=== PATIENT | male | born 1990 | race Asian ===

== ENCOUNTER 2016-05-29 13:04 | Emergency (ER) | payer SELFPAY ==
[~2016-05-29] VITALS: Ht 182.9 cm; Wt 113.0 kg
[2016-05-29 13:08] VITALS: TEMP 37.2; Ht 182.9 cm; Wt 113.0 kg
--- NOTE | 2016-05-29 14:09 | EMERGENCY ROOM VISIT NOTE ---
History Report prepared by Debra: Elmo Rodrgiuez Under the Supervision of: Dr. Tim Sandoval D.O. First contact with patient: 13:40 Chief Complaint: MENTAL HEALTH EVALUATION Stated Complaint: THOUGHTS OF HARMING SELF History of Present Illness The patient is a 25 year old male who presents to the Emergency Room for an acute mental health evaluation. The patient is a [employer] student. He has been under a lot of stress for the past several months. 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 The patient was intoxicated last night when he made suicidal statements to his friends. The patient's friend contacted 911 and he came to the ED. The patient denies any specific plans for suicide. He is not currently suicidal, and just wants to get through this semester. He denies past suicidal ideations other than last night. The patient has access to a handgun. He has never seen a psychiatrist or therapist. He denies any significant medical or surgical history. He does not take any regular medications. He is a former smoker and does not use drugs other than alcohol. Last night was his first time drinking in five weeks. He denies any fevers, chills, chest pain, shortness of breath, nausea, vomiting, diarrhea, or other complaints. Source of History: patient Onset: last night Position: other (psyche) Quality: other (suicidal ideations) Timing: resolved Associated Symptoms: No SOB, No chest pain, No chills, No diarrhea, No fevers, No nausea, No vomiting Review of Systems See HPI for pertinent positives & negatives. A total of 10 systems reviewed and were otherwise negative. Past Medical & Surgical Medical Problems: (1) No known health problems Family History No pertinent family history Social History Smoking Status: Former Smoker Alcohol Use: occasionally Occupation Status: [employer] student Current/Historical Medications No Active Prescriptions or Reported Meds Allergies Coded Allergies: No Known Allergies (Unverified , 05/29/16) Physical Exam Vital Signs Date Time Temp Pulse Resp B/P Pulse Ox O2 Delivery O2 Flow Rate FiO2 05/29/16 14:59 89 16 132/78 98 05/29/16 13:08 37.2 99 17 141/86 97 Room Air Physical Exam GENERAL: Patient is awake, alert, and in no acute distress. Patient is resting comfortably and showing no signs of anxiety EYES: The conjunctivae are clear. The pupils are round and reactive. EARS, NOSE, MOUTH AND THROAT: The nose is without any evidence of any deformity. Mucous membranes are moist tongue is midline NECK: The neck is nontender and supple. RESPIRATORY: Normal respiratory effort is noted there is no evidence of wheezing rhonchi or rales CARDIOVASCULAR: Regular rate and rhythm noted there no murmurs rubs or gallops normal S1 normal S2 GASTROINTESTINAL: The abdomen is soft. Bowel sounds are present in all quadrants. Abdomen is nontender MUSCULOSKELETAL/EXTREMITIES: There is no evidence of gross deformity full range of motion is noted in the hips and shoulders SKIN: There is no obvious evidence of any rash. There are no petechiae, pallor or cyanosis noted. NEUROLOGIC: Patient is awake alert and oriented x3 strength is symmetric patellar reflexes are 2+ bilaterally PSYCHIATRIC: Affect is normal, makes good eye contact, currently denying any suicidal or homicidal ideations. Medical Decision & Procedures ED Course 1400: The patient was evaluated in room A8. A complete history and physical examination were performed. 1435: The patient was evaluated by the mental health rn case management. The patient is cleared to be discharged. Medical Decision Prior records/ancillary studies reviewed. Triage Nursing notes reviewed. The patient's history was concerning for possible psychiatric disturbance. Differential diagnosis: Etiologies such as mood disorder, infection, hypoglycemia, electrolyte abnormalities, cardiac sources, intracerebral event, toxicologic, neurologic, as well as others were entertained. The patient is a 25-year-old male who presented to the emergency department with a friend for mental health evaluation. 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 He is unsure if she wants to continue on this path. His grades according to the patient are not bad. He is not flunking. He was drinking last night with some friends and made some suicidal ideation known to these friends. He no longer has suicidal ideation. He is not clinically intoxicated. He was evaluated by the mental health rn case management in the emergency department and not felt to meet criteria for involuntary admission. The patient was given information for follow-up. He was encouraged to avoid any further alcoholic beverages. He was also encouraged to call to set up a therapist appointment as soon as possible. He was also encouraged return to the emergency department or call crisis immediately if symptoms change worsen or the need arises. Impression Primary Impression: Anxiety Additional Impression: Suicidal ideation Scribe Attestation The scribe's documentation has been prepared under my direction and personally reviewed by me in its entirety. I confirm that the note above accurately reflects all work, treatment, procedures, and medical decision making performed by me. Departure Information Dispostion Home / Self-Care Prescriptions No Active Prescriptions or Reported Meds Referrals No Doctor, Assigned (PCP) Forms HOME CARE DOCUMENTATION FORM, IMPORTANT VISIT INFORMATION, School Instructions, Work Instructions Patient Instructions Depression Causes, Depression Counseling, My [facility] Additional Instructions Follow-up with your therapist as soon as possible. Call crisis or return to the emergency department immediately if symptoms change worsen or the need arises. Problem Qualifiers
[2016-05-29 14:59] VITALS: BP 132/78; PULSE 89; O2SAT 98
== END 2016-05-29 15:01 | disposition home or self-care (01) ==
LOC: C.EDB 13:07 → C.EDA 15:01
DX: Z00.8 Encounter for other general examination (principal); F41.9 Anxiety disorder, unspecified; R45.851 Suicidal ideations; Z87.891 Personal history of nicotine dependence